=== PATIENT | female | born 1965 | race Caucasian/White ===

== ENCOUNTER 2023-04-11 13:55 | Outpatient (CLI) | payer OTHER, SELFPAY ==
--- NOTE | ~2023-04-11 | XR_ITS ---
EXAMINATION: XR lumbar spine 2-3V DATE: 04/11/2023 14:41 INDICATION: Dorsalgia, unspecified. TECHNIQUE: 3 views of lumbar spine were obtained. COMPARISON: None. FINDINGS: There is 4 mm anterolisthesis of L4 on L5. Vertebral body heights are normal. There is mild ly decreased disc height at L4-L5 and severely decreased disc height at L5-S1. There is multilevel fa cet joint osteoarthritis, severe in lower lumbar spine. IMPRESSION: 1. Severe lower lumbar spondylosis. Reviewed, dictated and finalized at location E. MOLDER
--- NOTE | ~2023-04-11 | XR_ITS ---
EXAMINATION: XR cervical spine 4-5V DATE: 04/11/2023 14:42 INDICATION: Neck pain. TECHNIQUE: 4 views of cervical spine were obtained. COMPARISON: None. FINDINGS: There is 2 mm retrolisthesis of C5 on C6. Vertebral body heights are normal. There is moder ately decreased disc height at C5-C6 and mildly decreased disc height at C6-C7. There is multilevel m ild to moderate facet joint osteoarthritis. There is mild central canal stenosis at C5-C6. No prevert ebral soft tissue swelling. There is mild scarring at the lung apices. IMPRESSION: 1. Moderate cervical spondylosis. Reviewed, dictated and finalized at location E. AURANT AND BAR MANAGER
--- NOTE | ~2023-04-11 | XR_ITS ---
EXAMINATION: XR thoracic spine 2V DATE: 04/11/2023 14:40 INDICATION: Dorsalgia, unspecified. TECHNIQUE: 3 views of thoracic spine on 4 radiographs were obtained. COMPARISON: None. FINDINGS: There is 3 degrees dextrocurvature of thoracic spine. There is mild anterior wedging of 3 m id and upper thoracic vertebral bodies, likely chronic. There is multilevel mild to moderately decrea sed disc height in thoracic spine. There are endplate osteophytes at most levels. IMPRESSION: 1. Moderate thoracic spondylosis. Reviewed, dictated and finalized at location E. TERINTELLIGENCE ANALYST
== END 2023-04-11 13:56 | disposition home or self-care (01) ==
LOC: CHSIMG 13:57
PROVIDERS: PCP Nurse Practitioner Family; Visit Provider Nurse Practitioner Family
DX: M54.2 Cervicalgia (principal); M54.50 Low back pain, unspecified; M43.02 Spondylolysis, cervical region; M43.06 Spondylolysis, lumbar region; M43.04 Spondylolysis, thoracic region
CPT/HCPCS: 72050; 72070; 72100

== ENCOUNTER 2023-05-10 11:55 | Outpatient (CLI) | payer OTHER, SELFPAY ==
--- NOTE | ~2023-05-10 | DEXA_ITS ---
Bone Density Report Name: ALYSSA PATEL Age: 57 Sex: Female Ethnicity: White Date of : 1965 Indication: postmenopausal; screening for osteoporosis; height loss; hysterectomy; Referring Provider: ASAD SANDHU Study: Bone densitometry was performed. Exam Date: May 10, 2023 Accession number: [id number] Bone Density: Region BMD T-score Z-score Classification AP Spine(L1, L2, L3) 0.662 -3.2 -1.9 Osteoporosis Femoral Neck (Left) 0.515 -3.0 -1.7 Osteoporosis Total Hip (Left) 0.695 -2.0 -1.1 Osteopenia Femoral Neck (Right) 0.507 -3.1 -1.8 Osteoporosis Total Hip (Right) 0.637 -2.5 -1.6 Osteoporosis Femoral Neck Mean 0.511 -3.0 -1.8 Osteoporosis Total Hip Mean 0.666 -2.3 -1.3 Osteopenia World Health Organization criteria for BMD impression classify patients as: Normal (T-score at or above -1.0), Osteopenia (T-score between -1.0 and -2.5), or Osteoporosis (T-score at or below -2.5). 10-year Fracture Risk: FRAX not reported because: Some T-score for Spine Total or Hip Total or Femoral Neck at or below -2.5 Clinical Information Provided by Patient: Has used the following medications: Vitamin D, Calcium Has the following medical conditions: Hysterectomy Patient maximum height was 60 Menopause Age: 57 No regular weight bearing exercise Drinks caffeinated beverages Onset of menses at age 10 Number of children 0 Impression: The patient has osteoporosis, based on the Total Spine T-score. Discussion: INCREASED RISK OF FRACTURE. BONE DENSITY IS UNDESIRABLY LOW AT ONE OR MORE SKELETAL SITES, CONSISTENT WITH POSTMENOPAUSAL OSTEOPOROSIS. This patient's lowest T-score meets the World Health Organization's (WHO) criteria for osteoporosis at one or more sites (T-score -2.5 or below). In untreated patients, the risk of osteoporotic fracture increases approximately two-fold for each 1.0 SD decrease in T-score. Low bone density is not the only risk factor for fracture; also consider factors such as patient's age, frailty or poor health, risk of falling, risk of injury, previous osteoporotic fracture, family history of osteoporosis, cigarette smoking, low body weight, etc. Not everyone with low bone mineral density has osteoporosis; osteomalacia and other metabolic bone disorders should also be considered. Patients who have osteoporosis should be evaluated for specific diseases and conditions (secondary causes) that may cause or contribute to bone loss. The [place] [employer] Endocrinologists (AACE) and National Osteoporosis Foundation (NOF) recommend pharmacologic intervention for all postmenopausal women whose T-score is in this range. The patient should follow a healthful lifestyle (good nutrition with adequate calcium and vitamin D, and appropriate weight-bearing exercise). F
== END 2023-05-10 11:56 | disposition home or self-care (01) ==
LOC: CHSIMG 11:56
PROVIDERS: PCP Nurse Practitioner Family; Visit Provider Nurse Practitioner Family
DX: Z78.0 Asymptomatic menopausal state (principal); M81.0 Age-related osteoporosis without current pathological fracture; M85.88 Other specified disorders of bone density and structure, other site
CPT/HCPCS: 77080

== ENCOUNTER 2023-06-07 13:20 | Outpatient (CLI) | payer OTHER, SELFPAY ==
[2023-06-07 13:43] VITALS: BP 153/82; PULSE 66; RESP 14; TEMP 36.3; O2SAT 99; BMI 26.6
[2023-06-07] MEDS: ZOLEDRONIC ACID 5 MG/100 ML 100 ML 400 MG IVPB (13:50)
--- NOTE | 2023-06-07 14:24 | PC.NURSE ---
1332 Patient ambulated to floor without difficulty. 1425 Patient infusion completed no side effects at this time. Patient IV removed intact. Patient ambulated to elevator without difficulty.
== END 2023-06-07 13:21 | disposition home or self-care (01) ==
PROVIDERS: PCP Nurse Practitioner Family; Visit Provider Nurse Practitioner Family
DX: M81.0 Age-related osteoporosis without current pathological fracture (principal)
CPT/HCPCS: J3489

== ENCOUNTER 2024-07-10 12:53 | Outpatient (CLI) | payer OTHER, SELFPAY ==
--- OUTSIDE RECORDS SUMMARY | 2024-07-10 12:57 | XMS_ITS | Continuity of Care Document ---
Author Organization [facility] Address [address] [place] [address] Phone Care Team Providers Care Radiographer Technologist Name Role Phone Perry OD, Shukri Unavailable Unavailable Procedures Procedure Date CL Replacement - Vist[place] Disp W/BW Soft Tax - Medical Advance Directives Directive Yes / No Effective Date File Name No Information Encounters Encounter Description Practice Location Reason(s) For Visit Diagnoses Date Provider Providers Copied on Encounter [facility], [address] [place] [address] [address], [place], [place], [id number], tel:[phone] [facility] No Information [phone] Perry OD Shukri. [address] , [address], [place], [address], [place]. tel:[phone] Family History Family Member Type Diagnosis Age At Onset No Information Payers Payer name Insurance type Covered alliance party ID Authoriza tion(s) No Information Social History Type Description Quantity Date Captured Comments Sex Female Smoking Status No Information Chief Complaint And Reason For Visit No Information Reason For Referral Reason For Referral No Information History Of Present Illness Encounter Date Complaint History Of Prese nt Illness No Information Functional Status Date Functional Assessmen t No Information Instructions Date Instruction Additional Infor mation No Information Assessments Type Assessment Date No Information Patient Care Teams Name Effective Dates (start - stop) Status Members No Information
[2024-07-10 13:10] VITALS: BP 141/84; PULSE 68; RESP 16; TEMP 35.8; O2SAT 99; BMI 28.0
--- NOTE | 2024-07-10 13:10 | PC.NURSE ---
Patient here for Reclast infusion. Tolerated IV start well. Provided with ice water. Call light at side.
[2024-07-10] MEDS: ZOLEDRONIC ACID 5 MG/100 ML 100 ML 400 MG IVPB (13:15)
--- NOTE | 2024-07-10 13:45 | PC.NURSE ---
Patient tolerated infusion well. IV site discontinued, dressing applied. No adverse reactions noted from medication. Encouraged patient to drink plenty of fluids for the next 2-3 days. Discharge instructions reviewed and given to patient, patient states understanding. Patient left floor ambulatory.
== END 2024-07-10 13:45 | disposition home or self-care (01) ==
PROVIDERS: PCP Nurse Practitioner Family; Visit Provider Nurse Practitioner Family
DX: M81.0 Age-related osteoporosis without current pathological fracture (principal)
CPT/HCPCS: 96374; J3489